=== PATIENT | male | born 1995 | race African-American/Black ===

== ENCOUNTER 2018-08-20 18:24 | Emergency (ER) | payer MEDICAID ==
[~2018-08-20] VITALS: Ht 200.7 cm; Wt 100.0 kg
[2018-08-21] MEDS ORDERED: IPRATROPIUM BROMIDE (0.02%) 0.5MG/2.5ML NEB HHN STA (00:24)
[2018-08-21] MEDS ORDERED: IBUPROFEN 600MG TABLET PO STA (00:24)
[2018-08-21] MEDS ORDERED: ALBUTEROL (0.083%) 2.5MG/3ML NEB HHN STA (00:24)
[2018-08-21 01:51] VITALS: BP 123/75
== END 2018-08-21 02:13 | disposition home or self-care (01) ==
LOC: ER 18:24
DX: J10.1 Influenza due to other identified influenza virus with other respiratory manifestations (principal); R06.2 Wheezing
CPT/HCPCS: 71045; 87070; 87430; 87804; 93005; 94640; 99284; J7611